=== PATIENT | female | born 2000 | race Native Hawaiian/Other Pacific Islander ===

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

== ENCOUNTER 2019-10-19 09:54 | Outpatient (CLI) | payer MEDICAID, OTHER | END 2019-10-19 23:59 | disposition home or self-care (01) | LOC: LAB.WCP 09:54 | PROVIDERS: ATTEND Nurse Practitioner Family | DX: Z92.29 Personal history of other drug therapy (principal) | CPT/HCPCS: 36415; 81599; 86765 ==

== ENCOUNTER 2019-11-29 08:00 | Outpatient (CLI) | payer MEDICAID | END 2019-11-29 23:59 | disposition home or self-care (01) | LOC: LAB.R 08:00 | PROVIDERS: ATTEND Physician Assistant | DX: N39.0 Urinary tract infection, site not specified (principal) | CPT/HCPCS: 87086; 87181 ==

== ENCOUNTER 2019-12-22 08:00 | Outpatient (CLI) | payer MEDICAID | END 2019-12-22 23:59 | disposition home or self-care (01) | LOC: LAB.R 08:00 | PROVIDERS: ATTEND Family Medicine | DX: N39.0 Urinary tract infection, site not specified (principal) | CPT/HCPCS: 87077; 87086; 87181 ==

== ENCOUNTER 2020-01-13 22:14 | Emergency (ER) | payer MEDICAID ==
[2020-01-13 22:24] VITALS: BP 126/82
[2020-01-13 22:51] LABS: CLARITY,URINE HAZY (CLEAR)
[2020-01-13 22:56] LABS: BACTERIA,URINE Moderate /HPF (None Seen); RBC,URINE TNTC /HPF (0-5); SQUAMOUS EPITHELIAL CELL,UR NONE SEEN (<= Few)
[2020-01-13] MEDS ORDERED: CEPHALEXIN 250 MG Prepack 8 CAP BOTTLE PO STA (23:22)
--- NOTE | 2020-01-14 02:13 | ED Physician Documentation ---
History of Present Illness - Stated complaint Stated Complaint: F - Chief complaint Chief Complaint: UTI - History obtained from History obtained from: Patient - Additonal information Additional information: 19-year-old girl with past medical history of depression and anxiety, prior history of urinary tract infection presents with dysuria, increased urinary frequency and small volume urination x2 days. Denies hematuria, fevers. Does endorse some mild lower back pain. Denies vaginal discharge or lesions. Declining STI testing or exam at this time. Review of Systems Ten Systems: 10 systems reviewed and negative Constitutional: denies: Fever, Chills : reports: Dysuria, Frequency, Hesitancy. denies: Hematuria Skin: denies: Lesions Musculoskeletal: reports: Back pain PD PAST MEDICAL HISTORY - Past Medical History Respiratory: Asthma - Past Surgical History Past Surgical History: No - Present Medications Home Medications: Ambulatory Orders Medication Instructions Recorded Confirmed Albuterol Sulfate [Proair Hfa 11/17/16 Inhaler] - Allergies Allergies/Adverse Reactions: Allergies Allergy/AdvReac Type Severity Reaction Status Date / Time amoxicillin Allergy Unknown Verified 01/13/20 22:21 ampicillin Allergy Unknown Verified 01/13/20 22:21 - Social History Does the pt smoke?: No Smoking Status: Never smoker PD ED PE NORMAL - Vitals Vital signs reviewed: Yes - General General: Alert and oriented X 3 - HEENT HEENT: Atraumatic - Neck Neck: Supple, no meningeal sign - Cardiac Cardiac: RRR - Respiratory Respiratory: No respiratory distress, Clear bilaterally - Abdomen Abdomen: Non tender, Non distended - Female Female : Pt declined - Rectal Rectal: Deferred - Back Back: No CVA TTP - Derm Derm: Normal color - Extremities Extremities: No deformity - Neuro Neuro: Alert and oriented X 3 - Psych Psych: Normal mood, Normal affect Results - Vitals Vitals: Vital Signs - 24 hr 01/13/20 22:21 Temperature 36.6 C Heart Rate 76 Respiratory 16 Rate Blood Pressure 126/82 H O2 Saturation 99 Oxygen O2 Source Room air - Labs Labs: Laboratory Tests 01/13/20 22:34 Urine Color ORANGE Urine Clarity HAZY Urine pH Ur Specific [place] Urine Protein Urine Glucose (UA) Urine Ketones Urine Occult Blood Urine Nitrite Urine Bilirubin Urine Urobilinogen Ur Leukocyte Esterase Urine RBC TNTC H Urine WBC >25 H Ur Squamous Epith Cells NONE SEEN Urine Bacteria Moderate H Ur Microscopic Review INDICATED Urine Culture Comments INDICATED PD MEDICAL DECISION MAKING - ED course Complexity details: reviewed results, d/w patient ED course: 19-year-old girl found to have urinary tract infection. Treated with oral antibiotics. Education given about UTI prevention. Strict return precautions given. Follow-up with primary doctor. Departure - Departure Disposition: 01 Home, Self Care Clinical Impression: Urinary tract infection Condition: Good Instructions: ED UTI Cystitis Female Comments: You have been given Keflex, and antibiotic for urinary tract infection. Please take the entire course as prescribed. Return to the ED if you have fever with temperature greater than 100.4 with worsening of urinary symptoms. Also return for any worsening of symptoms. Follow-up with your primary doctor Discharge Date/Time: 01/13/20 23:40
== END 2020-01-13 23:40 | disposition home or self-care (01) ==
LOC: ED 22:14
DX: N39.0 Urinary tract infection, site not specified (principal)
CPT/HCPCS: 81001; 81003; 87077; 87086; 99283; 99284

== ENCOUNTER 2020-01-16 08:00 | Outpatient (CLI) | payer MEDICAID | END 2020-01-16 23:59 | disposition home or self-care (01) | LOC: LAB.WCP 08:00 | PROVIDERS: ATTEND Family Medicine | DX: N39.0 Urinary tract infection, site not specified (principal) | CPT/HCPCS: 87086 ==

== ENCOUNTER 2020-02-09 08:50 | Outpatient (CLI) | payer MEDICAID | END 2020-02-09 08:51 | disposition home or self-care (01) | LOC: DI 08:50 | PROVIDERS: ATTEND Physician Assistant | DX: I51.7 Cardiomegaly (principal); N30.90 Cystitis, unspecified without hematuria | CPT/HCPCS: 93306 ==

== ENCOUNTER 2020-02-09 08:51 | Outpatient (CLI) | payer MEDICAID ==
--- NOTE | 2020-02-09 11:44 | Ultrasound Report ---
PROCEDURE: Retroperitoneal INDICATIONS: RECURRENT BACTERIAL CYSTITIS TECHNIQUE: Real-time scanning was performed of the retroperitoneal organs, with image documentation. COMPARISON: None. FINDINGS: Kidneys: Kidneys are normal in size. Right kidney measures 10.1 cm long; left kidney measures 10.3 cm long. Right renal cortical thickness is 1.3 cm; left renal cortical thickness is 1.4 cm. No dipti d masses, hydronephrosis, or nephrolithiasis. Urinary bladder: Normal urinary bladder wall thickness. No bladder mass or stone identified. No post void residual. Both ureteral jets identified. IMPRESSION: Normal study. Reviewed by: John Armando MD on 02/09/2020 11:42 AM PST Approved by: John Armando MD on 02/09/2020 11:42 AM PST Station ID: [id number]
== END 2020-02-09 08:52 | disposition home or self-care (01) ==
LOC: DI 08:51
PROVIDERS: ATTEND Family Medicine
DX: N30.90 Cystitis, unspecified without hematuria (principal)

== ENCOUNTER 2020-03-25 15:33 | Emergency (ER) | payer MEDICAID ==
[2020-03-25 16:05] LABS: GLUCOSE, URINE (UA) 250 mg/dL (NEGATIVE); KETONES,URINE (UA) TRACE mg/dL (NEGATIVE)
[2020-03-25 16:34] LABS: CLARITY,URINE HAZY (CLEAR)
[2020-03-25 16:35] LABS: BILIRUBIN,URINE COLOR INTERFERENCE (NEGATIVE); LEUKOCYTE ESTERASE, URINE MODERATE (NEGATIVE); OCCULT BLOOD,URINE MODERATE (NEGATIVE)
[2020-03-25 16:37] LABS: BACTERIA,URINE Few /HPF (None Seen); MUCUS,URINE Moderate Strands; SQUAMOUS EPITHELIAL CELL,UR RARE Squamous (<= Few)
--- NOTE | 2020-03-25 16:47 | ED Physician Documentation ---
History of Present Illness - Stated complaint Stated Complaint: FEMALE - Chief complaint Chief Complaint: UTI - History obtained from History obtained from: Patient - Additonal information Additional information: 19-year-old woman with past medical history of UTI presents with the same today. She states that this morning she woke up with dysuria and increased frequency. Denies any other symptoms. Denies nausea, fever, back pain, abdominal pain. Review of Systems Ten Systems: 10 systems reviewed and negative Constitutional: denies: Fever, Chills GI: denies: Abdominal Pain, Nausea, Vomiting : reports: Dysuria, Frequency PD PAST MEDICAL HISTORY - Past Medical History Past Medical History: Yes Respiratory: Asthma Psych: Depression, Anxiety - Past Surgical History Past Surgical History: No - Present Medications Home Medications: Ambulatory Orders Medication Instructions Recorded Confirmed Albuterol Sulfate [Proair Hfa 8.5 gm NEB PRN PRN 11/17/16 03/25/20 Inhaler] Escitalopram Oxalate [Lexapro] 20 mg PO DAILY 03/25/20 03/25/20 Nitrofurantoin Monohyd/M-Cryst 100 mg PO BID 3 Days #6 capsule 03/25/20 [Macrobid 100 mg Capsule] Propranolol [Inderal] 10 mg PO PRN PRN 03/25/20 03/25/20 - Allergies Allergies/Adverse Reactions: Allergies Allergy/AdvReac Type Severity Reaction Status Date / Time amoxicillin Allergy Unknown Verified 03/25/20 15:42 ampicillin Allergy Unknown Verified 03/25/20 15:42 - Social History Does the pt smoke?: No Smoking Status: Never smoker ETOH Use: Other Does the pt have substance abuse?: No - Immunizations Immunizations are current?: Yes - POLST Patient has POLST: No PD ED PE NORMAL - Vitals Vital signs reviewed: Yes - General General: Alert and oriented X 3 - HEENT HEENT: Atraumatic, PERRL, EOMI - Neck Neck: Supple, no meningeal sign - Cardiac Cardiac: RRR - Respiratory Respiratory: No respiratory distress, Clear bilaterally - Abdomen Abdomen: Non tender, Non distended - Female Female : Deferred - Rectal Rectal: Deferred - Back Back: No CVA TTP - Derm Derm: Normal color - Extremities Extremities: No deformity - Neuro Neuro: Alert and oriented X 3 - Psych Psych: Normal mood, Normal affect Results - Vitals Vitals: Vital Signs - 24 hr 03/25/20 15:42 Temperature 36.7 C Heart Rate 80 Respiratory 16 Rate Blood Pressure 120/79 O2 Saturation 97 Oxygen O2 Source Room air - Labs Labs: Laboratory Tests 03/25/20 15:50 Urine Color ORANGE Urine Clarity HAZY Urine pH 7.0 Ur Specific [place] 1.020 Urine Protein Urine Glucose (UA) 250 H Urine Ketones TRACE Urine Occult Blood MODERATE H Urine Nitrite Urine Bilirubin COLOR INTERFERENCE Urine Urobilinogen Ur Leukocyte Esterase MODERATE H Urine RBC 11-25 H Urine WBC >25 H Ur Squamous Epith Cells RARE Squamous Urine Bacteria Few Urine Mucus Moderate Strands Ur Microscopic Review INDICATED Urine Culture Comments INDICATED Urine HCG, Qual TNP PD MEDICAL DECISION MAKING - ED course ED course: 19-year-old woman presents with uncomplicated UTI education given about UTI prevention. Return precautions given. She will follow up with her primary doctor. Antibiotics prescribed. Departure - Departure Disposition: Home, Self Care Clinical Impression: Cystitis Condition: Good Instructions: ED UTI Cystitis Female Prescriptions: Nitrofurantoin Monohyd/M-Cryst [Macrobid 100 mg Capsule] 100 mg PO BID 3 Days #6 capsule Comments: You were seen in the emergency department for UTI. Return to the ED for any new or worsening symptoms. Follow-up with your primary doctor. Take your antibiotics as prescribed.
[2020-03-25 16:54] VITALS: BP 113/70
== END 2020-03-25 16:53 | disposition home or self-care (01) ==
LOC: ED 15:33
DX: N30.90 Cystitis, unspecified without hematuria (principal)
CPT/HCPCS: 81001; 81003; 81025; 87077; 87086; 87181; 99283

== ENCOUNTER 2020-05-19 15:18 | Emergency (ER) | payer MEDICAID ==
[2020-05-19 15:40] LABS: CLARITY,URINE HAZY (CLEAR)
[2020-05-19 15:51] LABS: BACTERIA,URINE Rare /HPF (None Seen); RBC,URINE 0-5 /HPF (0-5); SQUAMOUS EPITHELIAL CELL,UR FEW Squamous (<= Few); WBC,URINE >25 /HPF (0-5)
--- NOTE | 2020-05-19 15:56 | ED Physician Documentation ---
PD HPI FEMALE - Stated complaint Stated Complaint: BLADDER PX - Chief complaint Chief Complaint: Abd Pain - History obtained from History obtained from: Patient - History of Present Illness Timing - onset: Today, Last night Timing - duration: Days (1) Timing - details: Gradual onset, Still present Associated symptoms: Dysuria, Urinary frequency. No: Fever, Vaginal discharge, Genital sore/lesion Contributing factors: No: , Exposed to STD Similar symptoms before: Diagnosis (UTI frequently in the past year) Review of Systems Constitutional: denies: Fever, Chills : reports: Dysuria, Frequency. denies: Hematuria, Discharge Skin: denies: Rash, Lesions PD PAST MEDICAL HISTORY - Past Medical History Respiratory: Asthma Psych: Depression, Anxiety - Past Surgical History Past Surgical History: No - Present Medications Home Medications: Ambulatory Orders Medication Instructions Recorded Confirmed Albuterol Sulfate [Proair Hfa 8.5 gm NEB PRN PRN 11/17/16 05/19/20 Inhaler] Escitalopram Oxalate [Lexapro] 20 mg PO DAILY 03/25/20 05/19/20 Propranolol [Inderal] 10 mg PO PRN PRN 03/25/20 05/19/20 cephALEXin [Keflex] 500 mg PO TID 5 Days #15 cap 05/19/20 - Allergies Allergies/Adverse Reactions: Allergies Allergy/AdvReac Type Severity Reaction Status Date / Time amoxicillin Allergy Unknown Verified 03/25/20 15:42 ampicillin Allergy Unknown Verified 03/25/20 15:42 - Social History Does the pt smoke?: No Smoking Status: Never smoker Does the pt have substance abuse?: No - Immunizations Immunizations are current?: Yes - POLST Patient has POLST: No PD ED PE NORMAL - Vitals Vital signs reviewed: Yes - General General: Alert and oriented X 3, No acute distress, Well developed/nourished - Abdomen Abdomen: Normal bowel sounds, Soft - Female Female : Deferred - Back Back: No CVA TTP - Derm Derm: Normal color - Neuro Neuro: Alert and oriented X 3, No motor deficit, Normal speech Results - Vitals Vitals: Vital Signs - 24 hr 05/19/20 05/19/20 15:20 16:28 Temperature 36.4 C L 37 C Heart Rate 90 71 Respiratory 18 16 Rate Blood Pressure 126/77 111/66 O2 Saturation 100 98 Oxygen O2 Source Room air - Labs Labs: Laboratory Tests 05/19/20 15:25 Urine Color ORANGE Urine Clarity HAZY Urine pH Ur Specific [place] Urine Protein Urine Glucose (UA) Urine Ketones Urine Occult Blood Urine Nitrite Urine Bilirubin Urine Urobilinogen Ur Leukocyte Esterase Urine RBC 0-5 Urine WBC >25 H Ur Squamous Epith Cells FEW Squamous Urine Bacteria Rare Ur Microscopic Review INDICATED Urine Culture Comments Not Reportable Urine HCG, Qual Cancelled PD MEDICAL DECISION MAKING - ED course Complexity details: reviewed old records (Prior urine cultures have been staph saprophyticus with resistance patterns noted. Her current prescription should cover these. She would prefer not having quinolone as she felt lightheaded and weird with a prior prescription.), reviewed results (We will try cephalexin in would have been appropriate for prior episodes. She prefers not quinolones from prior side effects. Also consider clindamycin based on her prior cultures. Await current culture.), considered differential, d/w patient Departure - Departure Disposition: 01 Home, Self Care Clinical Impression: Dysuria UTI (urinary tract infection) Qualifiers: Urinary tract infection type: acute cystitis Hematuria presence: without hem aturia Qualified Code(s): N30.00 - Acute cystitis without hematuria Condition: Stable Record reviewed to determine appropriate education?: Yes Instructions: ED UTI Cystitis Female Prescriptions: cephALEXin [Keflex] 500 mg PO TID 5 Days #15 cap Comments: The last several bladder infections you have had have cultured a germ called staph saprophyticus. These have been consistently sensitive to cephalosporins, nitrofurantoin, clindamycin, and the quinolones such as Cipro. They should have been sensitive to sulfa/Bactrim as well though the cultures did not specify on each time. The culture of your current infection will result in a day or 2 and will see the sensitivity/resistance patterns this time. Cephalexin 3 times a day for 5 days should be appropriate if the germs are the same or even for other common bladder infection causes. Stay well-hydrated. Continue the Azo as needed for discomfort. Add in some ibuprofen or naproxen anti-inflammatory if needed for pain. Recheck if not improved well over the next few days and resolved by 3 to 5 days. We will call you if we need to change antibiotics based on the culture. Discharge Date/Time: 05/19/20 16:36
[2020-05-19] MEDS ORDERED: cephALEXin 250 MG CAPSULE PO STA (16:22)
[2020-05-19 16:29] VITALS: BP 111/66
== END 2020-05-19 16:36 | disposition home or self-care (01) ==
LOC: ED 15:18
DX: N30.00 Acute cystitis without hematuria (principal)
CPT/HCPCS: 81001; 99283; A9270; 81003; 81025; 87086

== ENCOUNTER 2020-10-23 08:00 | Outpatient (CLI) | payer MEDICAID | END 2020-10-23 23:59 | disposition home or self-care (01) | LOC: LAB.N 08:00 | PROVIDERS: ATTEND Physician Assistant Medical | DX: R07.0 Pain in throat (principal); Z20.822 Contact with and (suspected) exposure to COVID-19 | CPT/HCPCS: 87070 ==

== ENCOUNTER 2022-01-14 11:31 | Outpatient (CLI) | payer MEDICAID ==
[2022-01-14 11:57] LABS: ALBUMIN 4.5 g/dL (3.2-5.5); ALBUMIN/GLOBULIN RATIO 1.2 (1.0-2.2); BILIRUBIN,TOTAL 1.3 mg/dL (0.2-1.0); CALCIUM 9.1 mg/dL (8.5-10.3); CREATININE 0.8 mg/dL (0.4-1.0); POTASSIUM 3.4 mmol/L (3.5-5.0); TOTAL PROTEIN 8.2 g/dL (6.7-8.2)
[2022-01-14 12:12] LABS: THYROID STIMULATING HORMONE 2.06 uIU/mL (0.34-5.60)
[2022-01-14 12:18] LABS: PROLACTIN 14.44 ng/mL
[2022-01-14 12:25] LABS: HCG,QUALITATIVE BLOOD NEGATIVE
== END 2022-01-14 11:32 | disposition home or self-care (01) ==
LOC: LAB 11:31
PROVIDERS: ATTEND Nurse Practitioner Family
DX: N64.3 Galactorrhea not associated with childbirth (principal)
CPT/HCPCS: 36415; 80053; 84146; 84443; 84703

== ENCOUNTER 2022-11-08 17:44 | Emergency (ER) | payer MEDICAID ==
[2022-11-08 18:00] VITALS: BP 131/90; O2SAT 98
[2022-11-08] MEDS ORDERED: CLINDAMYCIN 150 MG CAPSULE PO STA (18:22)
--- NOTE | 2022-11-08 18:42 | XRAY Report ---
PROCEDURE: Finger(s) LT INDICATIONS: L finger dog bite TECHNIQUE: AP hand, 2 views of the fourth finger(s) acquired. COMPARISON: None. FINDINGS: Bones: There is a 2 mm bone fracture fragment seen along the palmar aspect of the distal portion of the fourth finger. This demonstrates apparent well-corticated margins. Soft tissues: No suspicious soft tissue calcifications or masses. IMPRESSION: Likely remote bone fragment involving the fourth finger distally. Reviewed by: Lino Novak MD on 11/08/2022 5:41 PM TERRY Approved by: Lino Novak MD on 11/08/2022 5:41 PM TERRY Station ID: [id number]
--- NOTE | 2022-11-08 18:45 | ED Physician Documentation ---
History of Present Illness - Stated complaint Stated Complaint: HEAD LAC - Chief complaint Chief Complaint: Laceration - History obtained from History obtained from: Patient - History of Present Illness Timing: Today Pain level max: 4 Pain level now: 4 - Additonal information Additional information: Patient is a 22-year-old female who presents to the emergency department stating that she was at home today when her family's dog, lauri cooney started to attack their poodle. She states that she suffered bites and scratches. Has abrasions/lacerations to the left ear, right thigh, left fourth digit and scalp. Tetanus shot is up-to-date. She is allergic to amoxicillin. She states the dogs are immunized. Review of Systems Constitutional: denies: Fever : denies: Now EGA Skin: denies: Rash Musculoskeletal: denies: Neck pain, Back pain Neurologic: denies: Headache, Head injury PD PAST MEDICAL HISTORY - Past Medical History Cardiovascular: None Respiratory: Asthma Neuro: None Endocrine/Autoimmune: None GI: None JAWBONE BREAKER: None : None HEENT: None Psych: Depression, Anxiety Musculoskeletal: None Derm: Eczema - Past Surgical History Past Surgical History: No - Present Medications Home Medications: Ambulatory Orders Medication Instructions Recorded Confirmed Albuterol Sulfate [Proair Hfa 8.5 gm NEB PRN PRN 11/17/16 11/08/22 Inhaler] Escitalopram Oxalate [Lexapro] 20 mg PO DAILY 03/25/20 11/08/22 Propranolol [Inderal] 10 mg PO PRN PRN 03/25/20 11/08/22 clindamycin HCL [Cleocin HCl] 300 mg PO Q6H #40 cap 11/08/22 - Allergies Allergies/Adverse Reactions: Allergies Allergy/AdvReac Type Severity Reaction Status Date / Time amoxicillin Allergy Unknown Verified 03/25/20 15:42 ampicillin Allergy Unknown Verified 03/25/20 15:42 ciprofloxacin [From Cipro] Allergy Unknown Verified 11/08/22 18:54 - Social History Does the pt smoke?: No Smoking Status: Never smoker Does the pt have substance abuse?: No - Immunizations Immunizations are current?: Yes - POLST Patient has POLST: No PD ED PE NORMAL - Vitals Vital signs reviewed: Yes - General General: Alert and oriented X 3, No acute distress - HEENT HEENT: Moist mucous membranes - Neck Neck: Supple, no meningeal sign - Cardiac Cardiac: RRR - Respiratory Respiratory: No respiratory distress, Clear bilaterally - Derm Derm: Warm and dry - Extremities Extremities: Other - Neuro Neuro: Alert and oriented X 3 - Psych Psych: Normal mood, Normal affect - Free text exam Free text exam: Patient with a small superficial laceration to the left ear, approximately 0.1 cm, not actively bleeding. This is on the superior aspect of the pinna. No exposed cartilage. She also has a small abrasion/superficial laceration under the chin, about 0.1 cm as well. No active bleeding. There is a 0.3 cm laceration to the mid occiput, no active bleeding. There is also a abrasion/puncture wound to the right distal thigh, no active bleeding. Patient was also bit on the tip of the left index finger. Complains of pain to the pad of the finger. There is a small puncture wound. Neurovascular intact. no nail injury No other acute injuries Results - Vitals Vitals: Vital Signs - 24 hr 11/08/22 17:48 Temperature 37.1 C Heart Rate 86 Respiratory 20 Rate Blood Pressure 131/90 H O2 Saturation 98 Oxygen O2 Source Room air PD Medical Decision Making - ED course Complexity details: considered differential, d/w patient, d/w family ED course: Patient with multiple scratches/bites from a dog fight. No lacerations that would require repair. The patient is allergic to amoxicillin. We will place on clindamycin. Tetanus shot is up-to-date. Wounds were cleansed and bandaged. Warnings of infection and instructions on wound care given at bedside. Also counseled on how to minimize scarring. Patient counseled regarding signs and symptoms for which I believe and urgent re-evaluation would be necessary. Patient with good understanding of and agreement to plan and is comfortable going home at this time This document was made in part using voice recognition software. While efforts are made to proofread this document, sound alike and grammatical errors may occur. Departure - Departure Disposition: 01 Home, Self Care Clinical Impression: Dog bite Qualifiers: Encounter type: initial encounter Qualified Code(s): W54.0XXA - Bitten by dog, initial encounter Condition: Good Instructions: ED Bite Dog Follow-Up: Nathaly Zepeda ARNP [Primary Care Provider] - As Needed Prescriptions: clindamycin HCL [Cleocin HCl] 300 mg PO Q6H #40 cap Comments: Your prescriptions were sent to [facility] in [place]. Please take all antibiotics until gone. Please follow-up with your doctor for further care. Your x-ray does not show any acute fractures. Keep your wounds clean. Return for redness, swelling or drainage from the wounds. Forms: PCP List Discharge Date/Time: 11/08/22 18:56
== END 2022-11-08 18:56 | disposition home or self-care (01) ==
LOC: ED 17:44
DX: S00.472A Other superficial bite of left ear, initial encounter (principal); S00.87XA Other superficial bite of other part of head, initial encounter; S71.151A Open bite, right thigh, initial encounter; S61.251A Open bite of left index finger without damage to nail, initial encounter; W54.0XXA Bitten by dog, initial encounter; Y93.K9 Activity, other involving animal care; Z79.899 Other long term (current) drug therapy
CPT/HCPCS: 73140; 99283; A9270